=== PATIENT | male | born 1995 | race Caucasian/White ===

== ENCOUNTER 2018-01-07 01:55 | Emergency (ER) | payer OTHER ==
[~2018-01-07] VITALS: Ht 170.2 cm; Wt 70.3 kg
--- NOTE | ~2018-01-07 | EKG ---
[address] [address] ELECTROCARDIOGRAM REPORT Name: RIZWAN DENNIS Room [facility]: [id number] Admission: 01/07/18 Attend Phys: Discharge: 01/07/18 Date of : [birth year] Report #: [id number] THIS REPORT FOR: //name// [facility] ED Test Date: 2018-01-07 Test Time: 02:08:57 Pat Name: RIZWAN DENNIS Department: Room: Gender: M Diabetes Manager: ANGELA : 1995 Requested By: Low Ramsey Order Number: [id number] MD: Naun Patel Measurements Intervals [place] Rate: 132 P: 63 NE: 149 QRS: 50 QRSD: 98 T: 40 QT: 293 QTc: 434 Interpretive Statements Sinus tachycardia No previous ECG available for comparison Electronically Signed On 01-07-2018 12:18:31 CDT by Naun Patel [email or web address] <ELECTRONICALLY SIGNED> By: Naun Patel MD 01/07/18 1218 [id number] MD TRACIE Page
[2018-01-07 02:29] LABS: HEMATOCRIT 42.7 % (42.0-52.0); HEMOGLOBIN 14.7 gm/dL (14.0-18.0); MCH 31.9 pg (26.0-34.0); MCHC 34.6 g/dL (28.0-37.0); MCV 92.3 fL (80.0-100.0); RBC 4.62 mil/uL (4.50-6.00); RDW 12.6 % (10.5-14.5)
[2018-01-07 02:38] LABS: ANION GAP 11 mmol/L (7-16); BUN 21 mg/dL (7-18); CALCIUM 9.5 mg/dL (8.5-10.1); CHLORIDE 100 mmol/L (98-107); CO2 27 mmol/L (21-32); CREATININE 1.3 mg/dL (0.7-1.3); GLUCOSE 93 mg/dL (74-106); POTASSIUM 3.1 mmol/L (3.5-5.1); SODIUM 138 mmol/L (136-145)
[2018-01-07 02:46] LABS: ALBUMIN 4.1 g/dL (3.4-5.0); SGOT 60 U/L (15-37); SGPT 38 U/L (30-65); TOTAL BILIRUBIN 1.3 mg/dL (<0.1-1.0); TOTAL PROTEIN 7.4 g/dL (6.4-8.2); TROPONIN-I < 0.04 ng/mL (<0.06)
[2018-01-07 04:32] VITALS: BP 129/72
== END 2018-01-07 04:33 | disposition home or self-care (01) ==
LOC: ER 01:55
PROVIDERS: Emergency Medicine
DX: R07.9 Chest pain, unspecified (principal); F15.10 Other stimulant abuse, uncomplicated; R00.2 Palpitations; R05 Cough; R51 Headache; F17.210 Nicotine dependence, cigarettes, uncomplicated